=== PATIENT | male | born 1965 | race Two or more races ===

== ENCOUNTER 2018-05-15 12:47 | Outpatient (CLI) | payer OTHER ==
[~2018-05-15] VITALS: Ht 175.3 cm; Wt 64.4 kg
== END 2018-05-15 13:05 | disposition home or self-care (01) ==
LOC: OFIC 805 12:47
DX: H91.8X3 Other specified hearing loss, bilateral (principal); J32.8 Other chronic sinusitis; G50.1 Atypical facial pain; R09.81 Nasal congestion